=== PATIENT | male | born 1960 | race Caucasian/White ===

== ENCOUNTER 2019-12-14 01:29 | Observation (INO) | payer OTHER, SELFPAY ==
[~2019-12-14] VITALS: Ht 175.3 cm; Wt 101.2 kg
[~2019-12-14 01:29] MED LIST: MOXI400T
[2019-12-14 01:30] VITALS: BP_SYST 168
[2019-12-14] MEDS ORDERED: ASPIRIN 325 MG TABLET PO ONE (01:45)
[2019-12-14] MEDS ORDERED: ENOXAPARIN SODIUM 100 MG/ML SYRINGE SUBCUT ONE (01:45)
[2019-12-14] MEDS ORDERED: NITROGLYCERIN 0.2 MG/HR PATCH.TD24 TD ONE (02:00)
[2019-12-14] MEDS ORDERED: MORPHINE 4 MG/ML INJ. SYRINGE IVP ONE ×2 (02:00→23:30)
[2019-12-14 02:06] LABS: BASOPHILS # (AUTO) 0.1 K/uL (0.0-0.2); BASOPHILS % (AUTO) 1.1 % (0.0-2.0); EOSINOPHILS # (AUTO) 0.4 K/uL (0.0-0.4); EOSINOPHILS % (AUTO) 4.2 % (0.0-4.0); HEMATOCRIT 43.4 % (36-54); HEMOGLOBIN 14.5 g/dL (14.0-18.0); LYMPHOCYTES % (AUTO) 28.5 % (20.5-51.5); MEAN CORPUSCULAR HEMOGLOBIN 28 pg (27-31); MEAN CORPUSCULAR HGB CONC 34 % (32-36); MEAN CORPUSCULAR VOLUME 83 fL (79.0-98.0); MONOCYTES % (AUTO) 9.6 % (1.7-9.3); NEUTROPHILS % (AUTO) 56.6 % (40.0-70.0); PLATELET COUNT (AUTO) 273 K/uL (130-430); RED BLOOD CELL COUNT(AUTO) 5.23 MIL/uL (4.2-6.2); WHITE BLOOD COUNT (AUTO) 10.5 K/uL (4.8-10.8)
[2019-12-14 02:21] LABS: CREATININE 0.94 mg/dL (0.55-1.30); POTASSIUM 4.1 mmol/L (3.5-5.1)
[2019-12-14] MEDS ORDERED: NITROGLYCERIN 1 INCH (GM) OINT. ONE (02:21)
[2019-12-14 02:23] LABS: INR 0.9 (0.80-1.20); PROTHROMBIN TIME 9.1 SECS (9.5-12.5)
[2019-12-14 02:26] LABS: ALBUMIN 4.1 g/dL (3.4-4.8); TOTAL BILIRUBIN 0.2 mg/dL (0.0-1.0)
[2019-12-14] MEDS ORDERED: LISI40TA4 PO (02:27)
[2019-12-14] MEDS ORDERED: ASPI-1155 PO (02:27)
[2019-12-14] MEDS ORDERED: ATOR10TA68 PO (02:27)
[2019-12-14] MEDS ORDERED: CARV25TA55 PO (02:27)
[2019-12-14 03:29] VITALS: BP_SYST 143
[2019-12-14] MEDS ORDERED: ALBUTEROL SULFATE 0.083% 2.5 MG/3 ML VIAL.NEB INH PRN (06:15)
[2019-12-14] MEDS ORDERED: ACETAMINOPHEN 325 MG TABLET PO PRN (06:15)
[2019-12-14] MEDS ORDERED: MORPHINE 2 MG/ML INJ. SYRINGE IVP PRN (06:15)
[2019-12-14] MEDS ORDERED: NALOXONE HCL 0.4 MG/ML AMP (NARCAN) IVP PRN (06:15)
[2019-12-14 08:00] VITALS: BP_SYST 144
[2019-12-14] MEDS ORDERED: lisinopriL 20 MG TABLET PO SCH (09:00)
[2019-12-14] MEDS ORDERED: ATORVASTATIN 10 MG TABLET PO SCH (09:00)
[2019-12-14] MEDS ORDERED: ASPIRIN 81 MG TAB.CHEW PO SCH (09:00)
[2019-12-14] MEDS ORDERED: ENOXAPARIN SODIUM 40 MG/0.4 ML SYRINGE SUBCUT SCH (09:00)
[2019-12-14] MEDS ORDERED: CARVEDILOL 25 MG TABLET (COREG) PO SCH (09:00)
[2019-12-14 09:33] LABS: CHOLESTEROL 155 mg/dL (<200); HDL CHOLESTEROL 36 mg/dL (>45); LDL CHOLESTEROL 91 mg/dL (<100); TRIGLYCERIDES 303 mg/dL (30-150)
[2019-12-14 10:56] VITALS: BP_SYST 151
[2019-12-14] MEDS ORDERED: NITROGLYCERIN 1 INCH (GM) OINT. TP ONE (23:30)
== END 2019-12-14 11:16 | disposition home or self-care (01) ==
LOC: SED 01:29 → STU 02:35
PROVIDERS: ADMIT Internal Medicine Hospice and Palliative Medicine; ATTEND Internal Medicine Hospice and Palliative Medicine
DX: R07.89 Other chest pain (principal); Z20.828 Contact with and (suspected) exposure to other viral communicable diseases; I25.119 Atherosclerotic heart disease of native coronary artery with unspecified angina pectoris; I10 Essential (primary) hypertension; E78.5 Hyperlipidemia, unspecified; I25.2 Old myocardial infarction; Z87.891 Personal history of nicotine dependence; Z79.82 Long term (current) use of aspirin; Z79.899 Other long term (current) drug therapy; Z95.5 Presence of coronary angioplasty implant and graft
CPT/HCPCS: 36415; 71045; 80053; 80061; 83880; 84484; 85025; 85379; 85610; 85730; 87426; 93005; 93306; 96372 ×2; 96374; 99291; G0378; J1650 ×2

== ENCOUNTER 2021-12-10 13:16 | Emergency (ER) | payer OTHER ==
[~2021-12-10] VITALS: Ht 175.3 cm; Wt 96.2 kg
[~2021-12-10 13:16] MED LIST changes: +ASPI-1155 PO; +ATOR10TA68 PO; +CARV25TA55 PO; +LISI40TA13 PO; -MOXI400T
[2021-12-10 13:22] VITALS: BP_SYST 180
--- NOTE | 2021-12-10 15:39 | NUR ---
Patient to ER bed 7 to gown for evaluation. Side rails up. Report given to .
--- NOTE | 2021-12-10 15:45 | NUR ---
REPORT RECEIVED, CARE ASSUMED, PT ASSESSED. PT PLACED ON ROLL SKINNER. STATES THAT HE HAS HAD INCREASING BP OVER THE PAST WEEK WITH INTERMITTENT CP, STATES THAT HE SAW HIS PCP TODAY AND WAS TOLD TO COME INTO THE ED. PT DENIES CP CURRENTLY, A&O X4, RESP EASY, MM PINK, NAD. DR LIRA NOTIFIED OF PT C/O RECENT CP, EKG ORDERED.
--- NOTE | 2021-12-10 15:55 | NUR ---
EKG DONE BY TECH
--- NOTE | 2021-12-10 16:00 | NUR ---
ER at bedside examining patient.
--- NOTE | 2021-12-10 16:20 | NUR ---
LAB AT BEDSIDE, SPECIMENS OBTAINED
[2021-12-10 17:08] LABS: BASOPHILS # (AUTO) 0.1 K/uL (0.0-0.2); BASOPHILS % (AUTO) 0.9 % (0.0-2.0); EOSINOPHILS # (AUTO) 0.4 K/uL (0.0-0.4); HEMATOCRIT 41.4 % (36-54); HEMOGLOBIN 14.3 g/dL (14.0-18.0); LYMPHOCYTES # (AUTO) 2.2 K/uL (1.0-5.5); MEAN CORPUSCULAR HEMOGLOBIN 28 pg (27-31); MEAN CORPUSCULAR HGB CONC 35 % (32-36); MEAN CORPUSCULAR VOLUME 80 fL (79.0-98.0); MONOCYTES # (AUTO) 0.8 K/uL (0.0-1.0); MONOCYTES % (AUTO) 7.9 % (1.7-9.3); NEUTROPHILS # (AUTO) 6.3 K/uL (1.8-7.7); NEUTROPHILS % (AUTO) 64.2 % (40.0-70.0); PLATELET COUNT (AUTO) 253 K/uL (130-430); RED BLOOD CELL COUNT(AUTO) 5.17 MIL/uL (4.2-6.2); RED CELL DISTRIBUTION WIDTH 13.6 % (9.0-15.0); WHITE BLOOD COUNT (AUTO) 9.8 K/uL (4.8-10.8)
--- NOTE | 2021-12-10 17:18 | NUR ---
PT AMBULATED TO [facility] DIFF. DENIES C/O AT PRESENT
[2021-12-10 17:36] LABS: ANION GAP 8 (5-15); CHLORIDE 105 mmol/L (98-107); CREATININE 0.94 mg/dL (0.55-1.30); GLUCOSE 93 mg/dL (70-99); POTASSIUM 4.2 mmol/L (3.5-5.1); UREA NITROGEN, BLOOD 22 mg/dL (8-21)
[2021-12-10 17:44] LABS: ALANINE AMINOTRANSFERASE 38 U/L (12-78); ALBUMIN 4.1 g/dL (3.4-4.8); ASPARTATE AMINOTRANSFERASE 17 U/L (10-37); TOTAL BILIRUBIN 0.3 mg/dL (0.0-1.0)
[2021-12-10 17:46] LABS: GFR AFRICAN AMERICAN 104 mL/min (>90)
--- NOTE | 2021-12-10 18:35 | NUR ---
PT RESTING QUIETLY, RESP EASY, MM PINK NO APPARENT DISTRESS
[2021-12-10] MEDS ORDERED: cloNIDine HCL 0.1 MG TABLET PO ONE (18:45)
[2021-12-10 18:49] VITALS: BP_SYST 190
--- NOTE | 2021-12-10 18:51 | NUR ---
Patient given written and verbal discharge instructions and verbalizes understanding. ER MD discussed with patient the results and treatment provided. Patient in stable condition. ID arm band removed. Rx of CLONIDINE given. Patient educated on pain management and to follow up with PMD. Pain Scale . Opportunity for questions provided and answered. Medication side effect fact sheet provided.
== END 2021-12-10 18:49 | disposition home or self-care (01) ==
LOC: SED 13:16
DX: I16.0 Hypertensive urgency (principal); I10 Essential (primary) hypertension; E78.5 Hyperlipidemia, unspecified; R07.9 Chest pain, unspecified; R20.2 Paresthesia of skin; Z79.899 Other long term (current) drug therapy
CPT/HCPCS: 36415; 71045; 80053; 83880; 84484; 85025; 93005; 99285

== ENCOUNTER 2023-03-06 07:31 | Emergency (ER) | payer OTHER ==
[~2023-03-06] VITALS: Ht 175.3 cm; Wt 93.4 kg
[2023-03-06 07:55] VITALS: BP_SYST 151; PULSE 99; RESP 19; TEMP 97.6; O2SAT 98
[2023-03-06] MEDS ORDERED: LIDOCAINE 1% 10 MG/ML, 20 ML MDV INJ ONE (08:15)
[2023-03-06] MEDS ORDERED: DIPHTH,PERTUSS(ACELL),TET VAC 0.5 ML VIAL (Tdap) I.M. ONE (08:15)
[2023-03-06] MEDS ORDERED: BACITRACIN 1 GM OINT TP ONE (08:15)
[2023-03-06] MEDS ORDERED: CLIN-142 PO (08:49)
[2023-03-06] MEDS ORDERED: IBUP-1971 PO (08:49)
[2023-03-06] MEDS ORDERED: TRAM50TA2 PO (08:49)
[2023-03-06 09:18] VITALS: BP_SYST 151; PULSE 99; RESP 19; TEMP 97.6; O2SAT 98
== END 2023-03-06 09:04 | disposition home or self-care (01) ==
LOC: SED 07:31
DX: L05.91 Pilonidal cyst without abscess (principal); I10 Essential (primary) hypertension; E78.5 Hyperlipidemia, unspecified; Z79.899 Other long term (current) drug therapy
CPT/HCPCS: 10080; 99283; 90715; 90471; J2001